=== PATIENT | female | born 1975 | race Caucasian/White ===

== ENCOUNTER → 2021-10-19 08:30 | Outpatient (BNVA) | payer OTHER, SELFPAY | PROVIDERS: PCP Internal Medicine; Visit Provider Internal Medicine | DX: S83.91XA Sprain of unspecified site of right knee, initial encounter (principal); S46.811A Strain of other muscles, fascia and tendons at shoulder and upper arm level, right arm, initial encounter; W01.0XXA Fall on same level from slipping, tripping and stumbling without subsequent striking against object, initial encounter | CPT/HCPCS: 99202 ==

== ENCOUNTER 2022-03-20 10:30 | Outpatient (REF) | payer OTHER, SELFPAY ==
[2022-03-20 10:43] LABS: MANUAL DIFF FLAG NO
[2022-03-20 11:41] LABS: Basophils Percent Auto 0.2 % (0-2); Eosinophils Absolute Auto 0.1 X10*3/uL (0.0-0.4); Eosinophils Percent Auto 2.6 % (0-4); Hematocrit 39.7 % (37.0-47.0); Hemoglobin 12.9 g/dl (12.0-16.0); Lymphocytes Absolute Auto 1.4 X10*3/uL (1.2-4.9); Lymphocytes Percent Auto 31.9 % (20-40); Mean Corpuscular HGB Conc 32.5 g/dl (31.0-35.0); Mean Corpuscular Hemoglobin 30.6 pg (27.0-33.0); Mean Corpuscular Volume 94.1 fL (80.0-98.0); Mean Platelet Volume 9.3 fL (9.4-12.3); Monocytes Absolute Auto 0.4 X10*3/uL (0.1-1.2); Monocytes Percent Auto 9.3 % (2-11); Neutrophils Absolute Auto 2.4 x10*3/uL (2.0-8.3); Platelet Count 293 X10*3/uL (160-400); Red Blood Count 4.22 X10*6/uL (4.20-5.50); White Blood Count 4.3 X10*3/uL (4.8-10.8)
[2022-03-20 11:43] LABS: Estimated Average Glucose 94 mg/dL; Hemoglobin A1c % 4.9 %
[2022-03-20 12:00] LABS: Alanine Aminotransferase 13 U/L (0-31); Albumin Level 3.9 g/dL (3.5-5.0); Alkaline Phosphatase 43 U/L (39-117); Anion Gap 13 (12-20); Aspartate Amino Transferase 15 U/L (5-31); Bilirubin Total 0.2 mg/dL (0.0-1.0); Blood Urea Nitrogen 9 mg/dL (9-16); C Reactive Protein 0.98 mg/dL (< or = 0.50); Calcium 8.7 mg/dL (8.4-10.2); Carbon Dioxide 26 mmol/L (22-29); Chloride 108 mmol/L (96-108); Cholesterol 171 mg/dL; Estimated Glomerular Filt Rate > 60; Glucose Random 90 mg/dL (60-115); HDL Cholesterol 52 mg/dL; Iron 72 mcg/dL (30-160); LDL Cholesterol Calculated 94 mg/dl; Percent Iron Saturation 23 % (15-50); Potassium 4.5 mmol/L (3.3-5.1); Sodium 142 mmol/L (135-145); Total Iron Binding Capacity 317 mcg/dL (228-428); Total Protein 6.7 g/dL (6.5-8.0); Triglycerides 128 mg/dL; Unsaturated Iron Binding 245 ug/dL
[2022-03-20 12:10] LABS: Ferritin 168 ng/mL (10-250); Insulin 9 uU/mL (2-29); TSH reflex Free T4 1.26 uIU/mL (0.32-4.0); Vitamin D 25-OH Total 26.3 ng/mL (>30)
[2022-03-20 12:48] LABS: Folate 17.4 ng/mL (> or = 4.0); Vitamin B12 261 pg/mL (200-900)
[2022-03-21 12:37] LABS: PTHI 67 pg/mL (16-77)
[2022-03-23 23:32] LABS: Zinc 65 mcg/dL (60-130)
[2022-03-24 20:32] LABS: Vitamin A 45 mcg/dL (38-98)
[2022-03-25 14:41] LABS: Vitamin B1 <6 nmol/L (8-30)
== END 2022-03-20 10:31 | disposition home or self-care (01) ==
LOC: HO.LAB 10:30
PROVIDERS: PCP Internal Medicine; Visit Provider Physician Assistant Surgical
DX: E66.01 Morbid (severe) obesity due to excess calories (principal); Z90.3 Acquired absence of stomach [part of]
CPT/HCPCS: 36415; 80053; 80061; 82306; 82607; 82728; 82746; 83036; 83525; 83540; 83970; 84425; 84443; 84590; 84630; 85025; 86140

== ENCOUNTER → 2022-08-10 16:18 | Outpatient (BNVA) | payer OTHER, SELFPAY | PROVIDERS: PCP Internal Medicine; Visit Provider Physician Assistant Surgical | DX: Z13.89 Encounter for screening for other disorder (principal) ==

== ENCOUNTER → 2022-09-21 15:22 | Outpatient (BNVA) | payer OTHER, SELFPAY | PROVIDERS: PCP Internal Medicine; Visit Provider Physician Assistant Surgical | DX: Z13.89 Encounter for screening for other disorder (principal) ==

== ENCOUNTER 2023-01-16 16:17 | Outpatient (AMB) | payer OTHER, SELFPAY ==
--- NOTE | 2023-01-16 16:33 | A.OFFVIS_ITS ---
Intake VS Expanded 01/16/23 16:36 Height 5 ft 3 in Weight 196 lb 12.8 oz BMI 34.9 BP 168/78 H Blood Pressure Location Rt brachial Blood Pressure Position Sitting Pulse 85 Pulse Source Pulse Oximeter Temp 98.5 F Temperature Source Temporal Artery Scan Pulse Oximetry 97 Oxygen Delivery Method Room Air Body Fat 66.6 Body Fat Percentage 33.9 Free Fat Mass 130.0 Muscle Mass 123.4 Visceral Mass 8.0 Water Mass 92.8 BMR 1,761 Intake Visit Reasons: (OV) PO LSG 03/05/19 Allergies morphine [MORPHINE] Allergy (Severe, Verified 01/16/23 16:34) anaphylaxis shellfish derived [SHELLFISH DERIVED] Allergy (Severe, Verified 01/16/23 16:34) ANAPHYLAXIS Sulfa (Sulfonamide Antibiotics) [SULFA (SULFONAMIDE ANTIBIOTICS)] Allergy (Severe, Verified 01/16/23 16:34) SEVERE DIARRHES gluten [GLUTEN] Allergy (Intermediate, Verified 01/16/23 16:34) GI DISTRESS/RASH latex [LATEX] Allergy (Intermediate, Verified 01/16/23 16:34) BLISTERS soy [SOY] Allergy (Intermediate, Verified 01/16/23 16:34) RASH adhesive [ADHESIVE] Adverse Reaction (Severe, Verified 01/16/23 16:34) BLISTER/SKIN TEAR STERI STRIPS Allergy (Severe, Uncoded 04/11/22 14:57) BLISTER/SKIN TEAR ARTIFICIAL FOOD DYE Allergy (Intermediate, Uncoded 04/11/22 14:57) RASH SUGAR SUBSTITUTES Allergy (Intermediate, Uncoded 04/11/22 14:57) RASH artificial dye Allergy (Unknown, Uncoded 04/11/22 14:57) redness and itching artificial sugar Allergy (Unknown, Uncoded 04/11/22 14:57) redness and itching gluten - very ILL Allergy (Unknown, Uncoded 04/11/22 14:57) Unknown latex Allergy (Unknown, Uncoded 04/11/22 14:57) anaphylaxis Morphine Allergy (Unknown, Uncoded 04/11/22 14:57) Unknown shelfish Allergy (Unknown, Uncoded 04/11/22 14:57) redness and itching soy Allergy (Unknown, Uncoded 04/11/22 14:57) redness and itching sulfa drug - gastro issues Allergy (Unknown, Uncoded 10/26/22 14:57) Unknown Medication List - Last Reconciled 01/16/23 by DALE Zamudio cholecalciferol (vitamin D3) 25 mcg PO DAILY loratadine 10 mg PO DAILY zxnnzlzdiwax-qao-jsse-FA-vit K 45 mg iron- 800 mcg-120 mcg (Bariatric Multivitamins) caps PO phentermine 37.5 mg PO QAM tamoxifen 10 mg PO BID venlafaxine 75 mg PO DAILY venlafaxine ER 150 mg PO BEDTIME vitamin B complex 1 cap PO DAILY HPI HPI Comments History of Present Illness Details This?is a?47?yo female who is s/p LSG 03/05/2019. Presents for 3 year 10 month post op visit. Weight at last visit was 211.6 pounds with a BMI 37.5.? Weight loss of 14.8lbs since last visit. No complaints of nausea, emesis, abdominal pain or reflux, or constipation. Remains on phentermine per PCP, likely to stay on for 1 year. Present meal plan includes: Had used mostly cottage cheese (4 containers a day), may add berries, also used Palestinian yogurt or tuna or chicken, seasonal fruits and vegetables. gets about 90g protein per day very occasional portion of solid protein/meat Exercise routine includes: walking, core work, mountain biking or rail trail biking james about 3329-1744 calories per week gym- goes 5x/week for cardio, elliptical?? having a lot of lower back pain- injections not effective anymore, saw neurology for discussion of a possible procedure to relieve nerve root pressure but is holding off due to work commitments and feeling comfortable enough for the time being. biking is still relatively comfortable. can still do elliptical ? PFSH Family History Mother No problems noted. Father Afib Acute leukemia Social History Alcohol intake: never Patient Tobacco Use Status: Never used Tobacco Assessment & Plan Assessment & Plan (1) Status post sleeve gastrectomy: Code(s): Z90.3 - Acquired absence of stomach [part of] (2) Obesity: Code(s): E66.9 - Obesity, unspecified Plan Pt is happy with her progress and current meal plan, will continue. Annual labs ordered, to be drawn next month. Pt not tolerating B1 vitamin well so suggested trying B complex vitamin for now as her last B12 level was low normal. RTC 2 months per pt preference. Patient is obese and is not considered stable at this time. I spent a total of 30 minutes reviewing/updating records, examining the patient and counseling the patient on weight management as detailed above. Orders: Orders Vitamin B12 and Folate Today Z90.3 - Acquired absence of stomach [part of] Comprehensive Met. Panel Today Z90.3 - Acquired absence of stomach [part of] C Reactive Protein Today Z90.3 - Acquired absence of stomach [part of] Ferritin Today Z90.3 - Acquired absence of stomach [part of] Hemoglobin A1c Today Z90.3 - Acquired absence of stomach [part of] Insulin Today Z90.3 - Acquired absence of stomach [part of] IRON PROFILE Today Z90.3 - Acquired absence of stomach [part of] Lipid Panel Today Z90.3 - Acquired absence of stomach [part of] PTHI Today Z90.3 - Acquired absence of stomach [part of] TSH reflex Free T4 Today Z90.3 - Acquired absence of stomach [part of] Vitamin A Today Z90.3 - Acquired absence of stomach [part of] Vitamin B1 Today Z90.3 - Acquired absence of stomach [part of] Vitamin D 25-OH Total Today Z90.3 - Acquired absence of stomach [part of] Zinc Today Z90.3 - Acquired absence of stomach [part of] Complete Blood Count Auto Diff Today Z90.3 - Acquired absence of stomach [part of] Medications: New vitamin B complex 1 tab PO DAILY 90 tabs 1RF Discontinued vitamin B complex Discontinued Reason: Doctor's Order 1 cap PO DAILY 90 caps 3RF Coding Level of Care Code Est Pt Level 4 (43870) Diagnoses Status post sleeve gastrectomy Z90.3 Obesity E66.9
[2023-01-16 16:36] VITALS: BP 168/78; PULSE 85; TEMP 36.9; O2SAT 97; BMI 34.9
== END 2023-01-16 16:53 | disposition home or self-care (01) ==
PROVIDERS: PCP Internal Medicine; Visit Provider Physician Assistant Surgical
DX: E66.9 Obesity, unspecified (principal); Z68.34 Body mass index [BMI] 34.0-34.9, adult; Z90.3 Acquired absence of stomach [part of]; Z98.84 Bariatric surgery status
CPT/HCPCS: 99214

== ENCOUNTER → 2023-01-16 16:17 | Outpatient (BNVA) | payer OTHER, SELFPAY | PROVIDERS: PCP Internal Medicine; Visit Provider Physician Assistant Surgical ==

== ENCOUNTER 2023-03-26 13:04 | Outpatient (AMB) | payer OTHER, SELFPAY ==
--- NOTE | 2023-03-26 12:35 | MHC.OFFVISWM ---
Intake VS Expanded 03/26/23 12:44 Height 5 ft 3 in Weight 206 lb BMI 36.5 Intake Visit Reasons: VIDEO PO LSG 03/05/19 Allergies morphine [MORPHINE] Allergy (Severe, Verified 01/16/23 16:34) anaphylaxis shellfish derived [SHELLFISH DERIVED] Allergy (Severe, Verified 01/16/23 16:34) ANAPHYLAXIS Sulfa (Sulfonamide Antibiotics) [SULFA (SULFONAMIDE ANTIBIOTICS)] Allergy (Severe, Verified 01/16/23 16:34) SEVERE DIARRHES gluten [GLUTEN] Allergy (Intermediate, Verified 01/16/23 16:34) GI DISTRESS/RASH latex [LATEX] Allergy (Intermediate, Verified 01/16/23 16:34) BLISTERS soy [SOY] Allergy (Intermediate, Verified 01/16/23 16:34) RASH adhesive [ADHESIVE] Adverse Reaction (Severe, Verified 01/16/23 16:34) BLISTER/SKIN TEAR STERI STRIPS Allergy (Severe, Uncoded 04/11/22 14:57) BLISTER/SKIN TEAR ARTIFICIAL FOOD DYE Allergy (Intermediate, Uncoded 04/11/22 14:57) RASH SUGAR SUBSTITUTES Allergy (Intermediate, Uncoded 04/11/22 14:57) RASH artificial dye Allergy (Unknown, Uncoded 04/11/22 14:57) redness and itching artificial sugar Allergy (Unknown, Uncoded 04/11/22 14:57) redness and itching gluten - very ILL Allergy (Unknown, Uncoded 04/11/22 14:57) Unknown latex Allergy (Unknown, Uncoded 04/11/22 14:57) anaphylaxis Morphine Allergy (Unknown, Uncoded 04/11/22 14:57) Unknown shelfish Allergy (Unknown, Uncoded 04/11/22 14:57) redness and itching soy Allergy (Unknown, Uncoded 04/11/22 14:57) redness and itching sulfa drug - gastro issues Allergy (Unknown, Uncoded 04/11/22 14:57) Unknown Medication List - Last Reconciled 03/26/23 by DALE Zamudio cholecalciferol (vitamin D3) 25 mcg PO DAILY loratadine 10 mg PO DAILY goxgftsmugeu-ecn-eqqu-FA-vit K 45 mg iron- 800 mcg-120 mcg (Bariatric Multivitamins) caps PO phentermine 37.5 mg PO QAM tamoxifen 10 mg PO BID venlafaxine 75 mg PO DAILY venlafaxine ER 150 mg PO BEDTIME vitamin B complex 1 tab PO DAILY HPI HPI Comments History of Present Illness Details This?is a?47?yo female who is s/p LSG 03/05/2019. Presents for 4 year 1 month post op visit. Weight at last visit on 01/16/2023 was 196.8 pounds with a BMI of 34.9, weight today is 206 pounds, representing a 10 pound weight loss with a BMI today of 36.5.? No complaints of nausea, emesis, abdominal pain or reflux, or constipation. Having back surgery April 24, spinal decompression with Dr. Donaldson at [facility]- very difficult to move without pain and injections are no longer helping. Will need to be on 6 weeks of bedrest. Remains on phentermine per PCP, likely to stay on for 1 year. Present meal plan includes: Had used mostly cottage cheese (4 containers a day), may add berries, also used [place] yogurt or tuna or chicken, seasonal fruits and vegetables. gets about 90g protein per day very occasional portion of solid protein/meat lately has been using a little more convenience foods like deli meats or soups Exercise routine includes: walking is tolerable core work, mountain biking or rail trail biking james about 5716-8053 calories per week gym- goes 5x/week for cardio, elliptical?? limited in all this due to pain PFSH Family History Mother No problems noted. Father Afib Acute leukemia Social History Alcohol intake: never Patient Tobacco Use Status: Never used Tobacco Assessment & Plan Assessment & Plan (1) Obesity: Code(s): E66.9 - Obesity, unspecified (2) Status post sleeve gastrectomy: Code(s): Z90.3 - Acquired absence of stomach [part of] Plan Will refill B complex with 30 day refills. Pt will aim for 90g protein per day leading up to surgery, is trying to exercise as much as chronic pain allows. She is motivated to lose a little more weight prior to back surgery to help with her recovery. Will plan to meet again in 2 months for in person visit. Patient is obese and is not considered stable at this time. I spent a total of 30 minutes reviewing/updating records, examining the patient and counseling the patient on weight management as detailed above. Medications: Refilled vitamin B complex 1 tab PO DAILY 30 tabs 11RF Telehealth Telehealth Location of provider rendering services: practice address Location of patient: address on file Patient Identification confirmed using: Name, : Yes Telehealth method: video Patient verbally consented to treatment: Yes Patient verbally consented to billing insurance company: Yes Patient informed of any privacy concerns related to visit: Yes Coding Level of Care Code Tele Est Pt Level 4 (10984) Diagnoses Obesity E66.9 Status post sleeve gastrectomy Z90.3
[2023-03-26 12:44] VITALS: BMI 36.5
== END 2023-03-26 13:11 | disposition home or self-care (01) ==
LOC: HO.HBS 13:04
PROVIDERS: PCP Internal Medicine; Visit Provider Physician Assistant Surgical
DX: E66.9 Obesity, unspecified (principal); Z68.36 Body mass index [BMI] 36.0-36.9, adult; Z90.3 Acquired absence of stomach [part of]; Z98.84 Bariatric surgery status
CPT/HCPCS: 99214

== ENCOUNTER → 2023-03-26 13:04 | Outpatient (BNVA) | payer OTHER, SELFPAY | PROVIDERS: PCP Internal Medicine; Visit Provider Physician Assistant Surgical | DX: Z90.3 Acquired absence of stomach [part of] (principal); E66.9 Obesity, unspecified ==

== ENCOUNTER 2023-05-16 08:53 | Outpatient (REF) | payer OTHER, SELFPAY ==
[2023-05-16 09:13] LABS: MANUAL DIFF FLAG NO
[2023-05-16 09:44] LABS: Basophils Percent Auto 0.2 % (0-2); Eosinophils Absolute Auto 0.1 X10*3/uL (0.0-0.4); Eosinophils Percent Auto 1.6 % (0-4); Hematocrit 38.6 % (37.0-47.0); Hemoglobin 12.5 g/dl (12.0-16.0); Imm Gran Abs Auto 0.01 X10*3/uL (0.00-0.03); Imm Gran Pct Auto 0.2 % (0.0-0.4); Lymphocytes Absolute Auto 1.7 X10*3/uL (1.2-4.9); Lymphocytes Percent Auto 32.2 % (20-40); Mean Corpuscular HGB Conc 32.4 g/dl (31.0-35.0); Mean Corpuscular Volume 92.6 fL (80.0-98.0); Mean Platelet Volume 9.4 fL (9.4-12.3); Monocytes Absolute Auto 0.4 X10*3/uL (0.1-1.2); Monocytes Percent Auto 8.4 % (2-11); Neutrophils Absolute Auto 2.9 x10*3/uL (2.0-8.3); Neutrophils Percent Auto 57.4 % (45-73); Platelet Count 255 X10*3/uL (160-400); Red Blood Count 4.17 X10*6/uL (4.20-5.50); Red Cell Distribution Width 12.3 % (11.0-16.0); White Blood Count 5.1 X10*3/uL (4.8-10.8)
[2023-05-16 10:01] LABS: Estimated Average Glucose 97 mg/dL
[2023-05-16 10:16] LABS: Alanine Aminotransferase 13 U/L (0-31); Albumin Level 3.7 g/dL (3.5-5.0); Alkaline Phosphatase 38 U/L (39-117); Anion Gap 12 (12-20); Aspartate Amino Transferase 18 U/L (5-31); Bilirubin Total 0.4 mg/dL (0.0-1.0); Blood Urea Nitrogen 9 mg/dL (9-16); C Reactive Protein < 0.10 mg/dL (< or = 0.50); Calcium 8.9 mg/dL (8.4-10.2); Carbon Dioxide 26 mmol/L (22-29); Chloride 107 mmol/L (96-108); Cholesterol 186 mg/dL (<200); Estimated Glomerular Filt Rate > 60; Glucose Random 85 mg/dL (60-115); HDL Cholesterol 54 mg/dL (>40); Iron 136 mcg/dL (30-160); LDL Cholesterol Calculated 109 mg/dL (<100); Percent Iron Saturation 53 % (15-50); Potassium 3.7 mmol/L (3.3-5.1); Sodium 141 mmol/L (135-145); Total Iron Binding Capacity 256 mcg/dL (228-428); Total Protein 6.8 g/dL (6.5-8.0); Triglycerides 116 mg/dL (<150); Unsaturated Iron Binding 120 ug/dL
[2023-05-16 10:40] LABS: Ferritin 137 ng/mL (10-250); Insulin 6 uU/mL (2-29); TSH reflex Free T4 1.55 uIU/mL (0.32-4.0); Vitamin D 25-OH Total 30.4 ng/mL (>30)
[2023-05-16 10:52] LABS: Folate 14.9 ng/mL (> or = 4.0); Vitamin B12 322 pg/mL (200-900)
[2023-05-20 00:22] LABS: Zinc 65 mcg/dL (60-130)
[2023-05-20 13:04] LABS: Vitamin B1 12 nmol/L (8-30)
[2023-05-21 02:38] LABS: Vitamin A 50 mcg/dL (38-98)
== END 2023-05-16 08:54 | disposition home or self-care (01) ==
LOC: HO.LAB 08:53
PROVIDERS: PCP Internal Medicine; Visit Provider Physician Assistant Surgical
DX: Z90.3 Acquired absence of stomach [part of] (principal); K91.2 Postsurgical malabsorption, not elsewhere classified
CPT/HCPCS: 36415; 80053; 80061; 82306; 82607; 82728; 82746; 83036; 83525; 83540; 84425; 84443; 84590; 84630; 85025; 86140

== ENCOUNTER 2023-12-31 10:05 | Outpatient (AMB) | payer OTHER, SELFPAY ==
--- NOTE | 2023-12-31 10:10 | MHC.OFFVISWM ---
VS Expanded 12/31/23 10:20 BP 116/70 Blood Pressure Location Rt brachial Blood Pressure Position Sitting Pulse 87 Pulse Source Pulse Oximeter Temp 97.6 F Temperature Source Tympanic Pulse Oximetry 97 Oxygen Delivery Method Room Air Height 5 ft 3 in Weight 211 lb 9.6 oz BMI 37.5 Body Fat % 39.1 Body Fat Mass 82.6 Fat Free Mass 128.8 Visceral Fat Rating 10.0 Body Water % 43.4 Body Water Mass 91.8 Muscle Mass/Score 122.4 Basal Metabolic Rate/Score 1,770 Intake Visit Reasons: (OV) PO LSG 03/05/19 Allergies morphine [MORPHINE] Allergy (Severe, Verified 12/31/23 10:11) anaphylaxis shellfish derived [SHELLFISH DERIVED] Allergy (Severe, Verified 12/31/23 10:11) ANAPHYLAXIS Sulfa (Sulfonamide Antibiotics) [SULFA (SULFONAMIDE ANTIBIOTICS)] Allergy (Severe, Verified 12/31/23 10:11) SEVERE DIARRHES gluten [GLUTEN] Allergy (Intermediate, Verified 12/31/23 10:11) GI DISTRESS/RASH latex [LATEX] Allergy (Intermediate, Verified 12/31/23 10:11) BLISTERS soy [SOY] Allergy (Intermediate, Verified 12/31/23 10:11) RASH adhesive [ADHESIVE] Adverse Reaction (Severe, Verified 12/31/23 10:11) BLISTER/SKIN TEAR STERI STRIPS Allergy (Severe, Uncoded 12/31/23 10:11) BLISTER/SKIN TEAR ARTIFICIAL FOOD DYE Allergy (Intermediate, Uncoded 12/31/23 10:11) RASH SUGAR SUBSTITUTES Allergy (Intermediate, Uncoded 12/31/23 10:11) RASH artificial dye Allergy (Unknown, Uncoded 12/31/23 10:11) redness and itching artificial sugar Allergy (Unknown, Uncoded 12/31/23 10:11) redness and itching gluten - very ILL Allergy (Unknown, Uncoded 12/31/23 10:11) Unknown latex Allergy (Unknown, Uncoded 12/31/23 10:11) anaphylaxis Morphine Allergy (Unknown, Uncoded 12/31/23 10:11) Unknown shelfish Allergy (Unknown, Uncoded 12/31/23 10:11) redness and itching soy Allergy (Unknown, Uncoded 12/31/23 10:11) redness and itching sulfa drug - gastro issues Allergy (Unknown, Uncoded 12/31/23 10:11) Unknown Medication List - Last Reconciled 12/31/23 by DALE Zamudio cholecalciferol (vitamin D3) 50 mcg PO DAILY clotrimazole 1% 1 appl topical BID loratadine 10 mg PO DAILY bigauyfscexx-mbr-xosq-FA-vit K 45 mg iron- 800 mcg-120 mcg (Bariatric Multivitamins) caps PO phentermine 37.5 mg PO QAM tamoxifen 10 mg PO BID thiamine HCl (vitamin B1) 100 mg PO DAILY venlafaxine 75 mg PO DAILY venlafaxine ER 150 mg PO BEDTIME HPI Comments Details: This?is a?48?yo female who is s/p LSG 03/05/2019. Weight gain of 5.6lbs since last visit 9 months ago.? No complaints of nausea, emesis, abdominal pain or reflux, or constipation. Pt reports she lost her job in April, did not have back surgery, then her dad had a stroke in June and passed 3 months later. Despite all this she has tried to maintain high protein meal plan. Present meal plan includes: 30g Orgain shakes- 3x/day sometimes will have a nonfat plain malaysian yogurt Quest bars 20g sometimes avoids meat, does not have a taste for it gets about 100g+ protein per day Exercise routine includes: continues to mountain bike 1-2x/week, go to gym every other day- james 800cal per session, does arm workouts at home Has issues of excess skin of abdomen which is causing painful irritation/rashes. Uses cornstarch, showers frequently to keep dry. Has had to wear compressive tank tops and waistbands to help hold skin in place. PFSH Family History Mother No problems noted. Father Afib Acute leukemia Social History Alcohol intake: never Patient Tobacco Use Status: Never used Tobacco Physical Exam Vital Signs: Last Vital Signs Temp 97.6 F 12/31/23 10:20 Pulse 87 12/31/23 10:20 BP 116/70 12/31/23 10:20 Pulse Ox 97 12/31/23 10:20 Oxygen Delivery Method Room Air 12/31/23 10:20 BMI result Body Mass Index 37.5 Assessment & Plan Assessment & Plan (1) Obesity: Code(s): E66.9 - Obesity, unspecified Category: Medical (2) Status post sleeve gastrectomy: Code(s): Z90.3 - Acquired absence of stomach [part of] Category: Surgical Plan Pt may be too high in protein intake for current weight, recommended decreasing to ~85g per day. This could be accomplished with 2 Orgain 30g shakes plus one Quest bar and a small amount of solid protein. Her exercise seems to be adequate with over 2000 calories burned per week. Clotrimazole ointment Rx for rashes of excess skin of abdomen. Pt not tolerating B complex vitamin, had previously been low in B1 so will supplement only that for now, due for labs in April. RTC 2 months. Texted pt my contact info and encouraged her to reach out between visits with any questions. I spent a total of 30 minutes reviewing/updating records, examining the patient and counseling the patient on weight management as detailed above. Medications: New clotrimazole 1% 1 appl topical BID 45 grams 3RF thiamine HCl (vitamin B1) 100 mg PO DAILY 90 tabs 3RF Discontinued vitamin B complex Discontinued Reason: Doctor's Order 1 tab PO DAILY 30 tabs 11RF
[2023-12-31 10:20] VITALS: BP 116/70; PULSE 87; TEMP 36.4; O2SAT 97; BMI 37.5
== END 2023-12-31 11:05 | disposition home or self-care (01) ==
PROVIDERS: PCP Internal Medicine; Visit Provider Physician Assistant Surgical
DX: E66.9 Obesity, unspecified (principal); Z68.37 Body mass index [BMI] 37.0-37.9, adult; Z90.3 Acquired absence of stomach [part of]; Z98.84 Bariatric surgery status
CPT/HCPCS: 99214; G2211

== ENCOUNTER → 2023-12-31 10:05 | Outpatient (BNVA) | payer OTHER, SELFPAY | PROVIDERS: PCP Internal Medicine; Visit Provider Physician Assistant Surgical | DX: E66.9 Obesity, unspecified (principal); Z90.3 Acquired absence of stomach [part of]; Z98.84 Bariatric surgery status; Z68.37 Body mass index [BMI] 37.0-37.9, adult | CPT/HCPCS: 99212 ==

== ENCOUNTER 2024-02-24 11:21 | Outpatient (AMB) | payer OTHER, SELFPAY ==
--- NOTE | 2024-02-24 11:28 | MHC.OFFVISWM ---
VS Expanded 02/24/24 11:37 BP 143/79 H Blood Pressure Location Rt brachial Blood Pressure Position Sitting Pulse 86 Pulse Source Pulse Oximeter Temp 97.3 F Temperature Source Temporal Artery Scan Pulse Oximetry 97 Oxygen Delivery Method Room Air Height 5 ft 3 in Weight 203 lb BMI 36.0 Body Fat % 37.9 Body Fat Mass 77.0 Fat Free Mass 125.8 Visceral Fat Rating 10.0 Body Water % 44.2 Body Water Mass 89.8 Muscle Mass/Score 119.4 Basal Metabolic Rate/Score 1,724 Intake Visit Reasons: (OV) PO LSG 03/05/19 Allergies morphine [MORPHINE] Allergy (Severe, Verified 02/24/24 11:29) anaphylaxis shellfish derived [SHELLFISH DERIVED] Allergy (Severe, Verified 02/24/24 11:29) ANAPHYLAXIS Sulfa (Sulfonamide Antibiotics) [SULFA (SULFONAMIDE ANTIBIOTICS)] Allergy (Severe, Verified 02/24/24 11:29) SEVERE DIARRHES gluten [GLUTEN] Allergy (Intermediate, Verified 02/24/24 11:29) GI DISTRESS/RASH latex [LATEX] Allergy (Intermediate, Verified 02/24/24 11:29) BLISTERS soy [SOY] Allergy (Intermediate, Verified 02/24/24 11:29) RASH adhesive [ADHESIVE] Adverse Reaction (Severe, Verified 02/24/24 11:29) BLISTER/SKIN TEAR STERI STRIPS Allergy (Severe, Uncoded 02/24/24 11:29) BLISTER/SKIN TEAR ARTIFICIAL FOOD DYE Allergy (Intermediate, Uncoded 02/24/24 11:29) RASH SUGAR SUBSTITUTES Allergy (Intermediate, Uncoded 02/24/24 11:29) RASH artificial dye Allergy (Unknown, Uncoded 02/24/24 11:29) redness and itching artificial sugar Allergy (Unknown, Uncoded 02/24/24 11:29) redness and itching gluten - very ILL Allergy (Unknown, Uncoded 02/24/24 11:29) Unknown latex Allergy (Unknown, Uncoded 02/24/24 11:29) anaphylaxis Morphine Allergy (Unknown, Uncoded 02/24/24 11:29) Unknown shelfish Allergy (Unknown, Uncoded 02/24/24 11:29) redness and itching soy Allergy (Unknown, Uncoded 02/24/24 11:29) redness and itching sulfa drug - gastro issues Allergy (Unknown, Uncoded 02/24/24 11:29) Unknown Medication List - Last Reconciled 02/24/24 by DALE Zamudio cholecalciferol (vitamin D3) 50 mcg PO DAILY clotrimazole 1% 1 appl topical BID loratadine 10 mg PO DAILY guhqqcbxmurb-vgl-slkf-FA-vit K 45 mg iron- 800 mcg-120 mcg (Bariatric Multivitamins) caps PO phentermine 37.5 mg PO QAM tamoxifen 10 mg PO BID thiamine HCl (vitamin B1) 100 mg PO DAILY venlafaxine 75 mg PO DAILY venlafaxine ER 150 mg PO BEDTIME HPI Comments Details: This?is a?48?yo female who is s/p LSG 03/05/2019. Weight loss of 8.6 since last visit 2 months ago.? No complaints of nausea, emesis, abdominal pain or reflux, or constipation. 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 Present meal plan includes: 2 Orgain 30g shakes plus one Quest bar and a small amount of solid protein avoids meat, does not have a taste for it sometimes will exchange shake for cottage cheese and berries if she gets sick of them at last visit adjusted protein goal to 85g/day, pt previously getting 100+g/day Exercise routine includes: continues to mountain bike 1-2x/week, go to gym every other day- james 800cal per session elliptical, does arm workouts at home Has issues of excess skin of abdomen which is causing painful irritation/rashes. Has tried clotrimazole, showers frequently to keep dry. Has had to wear compressive tank tops and waistbands to help hold skin in place. [facility] Surgical History Hx of laparoscopic partial gastrectomy Family History Mother No problems noted. Father Afib Acute leukemia Social History Alcohol intake: never Patient Tobacco Use Status: Never used Tobacco Physical Exam Vital Signs: Last Vital Signs Temp 97.3 F 02/24/24 11:37 Pulse 86 02/24/24 11:37 BP 143/79 H 02/24/24 11:37 Pulse Ox 97 02/24/24 11:37 Oxygen Delivery Method Room Air 02/24/24 11:37 BMI result Body Mass Index 36.0 Assessment & Plan Assessment & Plan (1) Obesity: Code(s): E66.9 - Obesity, unspecified Category: Medical (2) Status post sleeve gastrectomy: Code(s): Z90.3 - Acquired absence of stomach [part of] Category: Surgical Plan Pt will continue same meal plan. Doing well losing >1lb/week. Continue clotrimazole for rashes of excess skin. Will recheck labs at next visit. RTC end of April, pt will reach out via text with any concerns prior to next appt. I spent a total of 30 minutes reviewing/updating records, examining the patient and counseling the patient on weight management as detailed above.
[2024-02-24 11:37] VITALS: BP 143/79; PULSE 86; TEMP 36.3; O2SAT 97; BMI 36.0
== END 2024-02-24 11:57 | disposition home or self-care (01) ==
PROVIDERS: PCP Internal Medicine; Visit Provider Physician Assistant Surgical
DX: E66.9 Obesity, unspecified (principal); Z68.36 Body mass index [BMI] 36.0-36.9, adult; Z90.3 Acquired absence of stomach [part of]; Z98.84 Bariatric surgery status
CPT/HCPCS: 99214

== ENCOUNTER → 2024-02-24 11:21 | Outpatient (BNVA) | payer OTHER, SELFPAY | PROVIDERS: PCP Internal Medicine; Visit Provider Physician Assistant Surgical | DX: E66.9 Obesity, unspecified (principal); Z90.3 Acquired absence of stomach [part of]; Z68.36 Body mass index [BMI] 36.0-36.9, adult | CPT/HCPCS: 99212 ==